=== PATIENT | male | born 1995 | race Caucasian/White ===

== ENCOUNTER 2017-04-27 08:31 | Emergency (ER) | payer BC ==
[~2017-04-27] VITALS: Ht 185.4 cm; Wt 90.0 kg
[2017-04-27 08:32] VITALS: BP 142/79; PULSE 61; RESP 16; TEMP 98.9; O2SAT 100
[2017-04-27] MEDS ORDERED: LIDOCAINE HCL 1% 50 ML VIAL INFIL ONE (08:45)
--- NOTE | 2017-04-27 09:11 | PD ---
HPI Chief Complaint: Laceration/Skin Injury Time Seen by Provider: 08:41 Travel History International Travel<30 days: No Contact w/Intl Traveler<30days: No Traveled to known affect area: No History of Present Illness HPI 21-year-old male presents to the emergency department complaining of a laceration to the right middle finger MCP, palmar aspect. States he was cut on porcelain last night at approximately 8 PM. Patient denies numbness but does state that the medial aspect of the palmar MCP feels a little tingling. States last tetanus shot was a few months ago. He denies weakness. Has full range of motion of finger. Denies any medical issues or chronic medication use. Denies allergies. PFSH Social History Alcohol Use: Yes (occ) Tobacco Use: Yes (1/2 pack a day ) Substance Use: No Allergies-Medications (Allergen,Severity, Reaction): Coded Allergies: No Known Allergies (Unverified , 04/27/17) Reported Meds & Prescriptions Reported Meds & Active Scripts Active Keflex (Cephalexin) 500 Mg Cap 500 Mg PO Q8H 7 Days Review of Systems Except as stated in HPI: all other systems reviewed are Neg Physical Exam Narrative GENERAL: Well-developed well-nourished in no apparent distress SKIN: Focused skin assessment warm/dry. HEAD: Atraumatic. Normocephalic. EYES: Pupils equal and round. No scleral icterus. No injection or drainage. NECK: Trachea midline. No JVD. CARDIOVASCULAR: Regular rate and rhythm. No murmur appreciated. RESPIRATORY: No accessory muscle use. Clear to auscultation. Breath sounds equal bilaterally. MUSCULOSKELETAL: No obvious deformities. No clubbing. No cyanosis. No edema. Right middle finger- MCP palmar aspect - 1-1-1/2 cm linear laceration grade 5 out of 5 strength flexion and extension, 2 point discrimination, capillary refill. Neurovascularly intact. NEUROLOGICAL: Awake and alert. No obvious cranial nerve deficits. Motor grossly within normal limits. Normal speech. PSYCHIATRIC: Appropriate mood and affect; insight and judgment normal. Data Data Last Documented VS Vital Signs Date Time Temp Pulse Resp B/P (MAP) Pulse Ox O2 Delivery O2 Flow Rate FiO2 04/27/17 08:32 98.9 61 16 142/79 (100) 100 Room Air Orders Orders Lidocaine 1% Inj (50 Ml) (Xylocaine 1% I (11/22/17 08:45) Wound Care (04/27/17 09:41) Ed Discharge Order (04/27/17 09:46) [facility] Medical Decision Making Medical Screen Exam Complete: Yes Emergency Medical Condition: Yes Differential Diagnosis Right middle finger Laceration versus avulsion versus abrasion Narrative Course 21-year-old male presents to the emergency department complaining of a laceration to the right middle finger MCP, palmar aspect. States he was cut on porcelain last night at approximately 8 PM. Patient states that the porcelain broke in his hand without shattering. Patient denies numbness but does state that the medial aspect of the palmar MCP feels a little tingling. States last tetanus shot was a few months ago. He denies weakness. Has full range of motion of finger. Denies any medical issues or chronic medication use. Denies allergies. Vital signs stable Laceration repair- irrigated copiously, laceration repair. Keflex for prophylaxis. 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 Advised on wound care. Advised to follow-up with primary care physician within 2-3 days. Advised to have suture removal in 7-10 days. Procedures Procedure Narrative LACERATION LOCATION: Middle finger palmar aspect MCP joint LENGTH: 1-1-1/2 cm NUMBER OF STITCHES/GREG: 4 simple interrupted sutures, Steri-Strips and Dermabond REPAIR: The area of the laceration was prepped with Betadine and sterilely draped. The laceration was infiltrated with 1% lidocaine without epi at palmar MCP joint. The wound was copiously irrigated and explored without evidence of foreign body, tendon injury or neurovascular injury. The wound was closed using 5-0 Prolene. This was a single layer repair. A sterile dressing was applied. The patient was advised to keep the dressing clean and dry. Patient tolerated the procedure well. Diagnosis Primary Impression: Laceration of finger Qualified Codes: S61.212A - Laceration without foreign body of right middle finger without damage to nail, initial encounter Referrals: Primary Care Physician Additional Instructions: Follow-up with your primary care physician within 2-3 days. Suture removal in 7-10 days. Do not remove Steri-Strips. They will fall off on their on. Leave current dressing on for 24 hours. Replace dressing daily. Take medication as prescribed. If you develop signs of infection return to the emergency department Scripts Cephalexin (Keflex) 500 Mg Cap 500 MG PO Q8H for Infection for 7 Days, #21 CAP 0 Refills Prov: Trent Marquez MD 04/27/17 Disposition: 01 DISCHARGE HOME Condition: Stable Johanne Whitfield Apr 27, 2017 09:11
[2017-04-27] MEDS ORDERED: CEPH-460 PO (09:46)
== END 2017-04-27 09:57 | disposition home or self-care (01) ==
LOC: NEPD 08:31
DX: S61.212A Laceration without foreign body of right middle finger without damage to nail, initial encounter (principal); W45.8XXA Other foreign body or object entering through skin, initial encounter
CPT/HCPCS: 12001